=== PATIENT | female | born 1955 | race Caucasian/White ===

== ENCOUNTER 2017-09-18 11:40 | Day surgery (SDC) | payer MEDICAID ==
[2017-09-18] MEDS ORDERED: LIDOCAINE 2% MDV (20MG/ML) 20ML VIAL IV ONE (11:41)
[2017-09-18] MEDS ORDERED: FENTANYL PF 100MCG/2ML VIAL IV ONE (11:41)
[2017-09-18] MEDS ORDERED: PROPOFOL 10 MG/ML VIAL IV ONE (11:41)
--- NOTE | 2017-09-21 14:00 | Operative Note ---
DATE OF SURGERY: 09/18/2017 SURGEON: Desi David MD OPERATION: ESOPHAGOGASTRODUODENOSCOPY. INDICATIONS: This is a 62-year-old female with history of persistent nausea with no vomiting who had HIDA scan that showed a gallbladder ejection fraction of 1.1% and now presented for esophagogastroduodenoscopy. POSTOPERATIVE DIAGNOSES: 1. Mild gastritis and multiple gastric polyps, status post polypectomy. 2. Otherwise normal esophagus and duodenum. ANESTHESIA: Sedation is per Anesthesia. Pulse oximetry was monitored throughout the procedure to maintain O2 saturation of 90% or greater. Supplemental oxygen was administered via nasal cannula. Cardiac and vital signs were monitored throughout the duration of the procedure, and they were stable. The procedure of esophagogastroduodenoscopy and risks and benefits of the procedure, including the risk of bleeding and perforation, among others, were explained to the patient who voiced understanding and agreed to have the procedure done. Physical examination was performed, and the patient was found stable for sedation. PROCEDURE: The patient was placed in the left lateral position. Sedation was initiated. A plastic bite block was inserted into the oral cavity. The Olympus [id number] gastroscope was then advanced into the proximal esophagus without difficulty. The esophageal mucosa was carefully examined upon introduction of the gastroscope. The proximal and mid and distal esophageal mucosa appeared normal. The gastroscope was then advanced into the stomach, and surveillance of the stomach revealed multiple gastric polyps and mild erythema along the gastric body and antrum but no ulcers were noted. The gastroscope was then advanced to the descending duodenum without difficulty. The duodenal bulb and descending duodenum appeared normal. The gastroscope was then withdrawn into the stomach and retroflexion was performed. There were no other lesions noted. Multiple gastric biopsies were obtained. Multiple duodenal biopsies were also obtained to rule out celiac disease. The polyps were removed with cold snare and subsequently removed with retrieval basket. The gastroscope was then withdrawn and the procedure was terminated. The patient tolerated the procedure well without any immediate complaints. She remained with stable vital signs and was transferred to the recovery room. RECOMMENDATIONS: 1. The patient is to continue on his proton pump inhibitors. 2. I will suggest that she have a cholecystectomy. 3. I would be happy to see her back in the office as needed. Thank you for allowing me to participate in the care of your patient. CC: Dr. Tamika GARCIA
== END 2017-09-18 15:09 | disposition home or self-care (01) ==
LOC: HOP 11:40
PROVIDERS: ATTEND Internal Medicine Gastroenterology
DX: K31.89 Other diseases of stomach and duodenum (principal); K29.70 Gastritis, unspecified, without bleeding; I10 Essential (primary) hypertension; E11.9 Type 2 diabetes mellitus without complications; Z79.84 Long term (current) use of oral hypoglycemic drugs; G62.9 Polyneuropathy, unspecified
CPT/HCPCS: 36416; 82948

== ENCOUNTER 2017-10-05 08:51 | Day surgery (SDC) | payer MEDICAID ==
[~2017-10-05 08:51] MED LIST: ACETAMINOPHEN 1,000 MG/100 ML BTL IV ONE; FAMOTIDINE 20MG TABLET PO ONE; MECLIZINE 25 MG TABLET PO ONE; METOCLOPRAMIDE 10 MG TABLET PO ONE
[2017-10-05] MEDS ORDERED: ONDANSETRON HCL IV 4 MG/2 ML VIAL IVP ONE (08:52)
[2017-10-05] MEDS ORDERED: ROCURONIUM BROMIDE 50MG/5ML VIAL IV ONE (08:52)
[2017-10-05] MEDS ORDERED: MIDAZOLAM HCL 2MG/2ML VIAL IV ONE (08:52)
[2017-10-05] MEDS ORDERED: PROPOFOL 10 MG/ML VIAL IV ONE (08:52)
[2017-10-05] MEDS ORDERED: KETOROLAC 30 MG/ML VIAL IVP ONE (08:52)
[2017-10-05] MEDS ORDERED: BUPIVACAINE 0.25% W/EPI MPF 30ML VIAL IVP ONE (08:52)
[2017-10-05] MEDS ORDERED: SUCCINYLCHOLINE 20 MG/ML 10ML IVP ONE (08:52)
[2017-10-05] MEDS ORDERED: NEOSTIGMINE 1 MG/1 ML,10ML VIAL IV ONE (08:52)
[2017-10-05] MEDS ORDERED: LIDOCAINE 1% MDV (10MG/ML) 20ML VIAL SQ ONE (08:52)
[2017-10-05] MEDS ORDERED: GLYCOPYRROLATE 0.2 MG/ML ML IV ONE (08:52)
[2017-10-05] MEDS ORDERED: SEVOFLURANE 250 ML INH ONE (08:52)
[2017-10-05] MEDS ORDERED: FENTANYL PF 100MCG/2ML VIAL IV ONE (08:52)
[2017-10-05 09:05] LABS: BASO % 0.6 % (0-6); EOS % 3.7 % (0-6); GRAN % 54.6 % (47-80); HEMATOCRIT 38.1 % (35.0-47.0); LYMPH % 32.6 % (16-45); MEAN CELL VOLUME 92.3 fl (81-97); MEAN CORPUSCULAR HEMOGLOBIN 29.1 pg (27-33); MEAN CORPUSCULAR HGB CONC 31.5 g/dl (32-36); MEAN PLATELET VOLUME 9.9 fl (7.4-10.4); MONO % 8.5 % (0-9); PLATELET COUNT 362 K/uL (130-400); RED BLOOD COUNT 4.13 M/uL (3.80-5.40); RED CELL DISTRIBUTION WIDTH 14.4 % (11.5-14.5); WHITE BLOOD COUNT W/O DIFF 7.2 K/uL (4.2-12.2)
[2017-10-05 09:26] LABS: BLOOD UREA NITROGEN 23 mg/dL (8-23); CREATININE 0.7 mg/dL (0.5-0.9); EST GLOMERULAR FILTRATION RATE > 60 mL/min; GLUCOSE,RANDOM 190 mg/dL (74-109)
--- NOTE | 2017-10-06 08:11 | Operative Note ---
DATE OF SURGERY: 10/05/2017 Surgeon: Hank Lora DO PREOPERATIVE DIAGNOSIS: Symptomatic biliary dyskinesia. POSTOPERATIVE DIAGNOSIS: Symptomatic biliary dyskinesia. OPERATION: Laparoscopic cholecystectomy. Indication: The patient is a 62-year-old female who is having ongoing right subcostal postprandial pain. She also has extreme postprandial nausea. She has had a workup including ultrasound, HIDA scan, gastric emptying study, upper endoscopy. We did discuss cholecystectomy versus medical management. She desired surgical intervention. Risks include bleeding, infection, ductal injury, possible conversion to open, postoperative bile leak, nonresolution of her symptoms. I let her know I could not guarantee she would gain any improvement from this. Nonetheless, she desired surgical intervention. PROCEDURE: Thereafter, consent was signed and questions answered. She was taken to the operating room and placed in a supine position. General anesthesia was administered per the department of anesthesia. The patient's abdomen was prepped and draped in the usual sterile fashion. Adequate timeout was performed. She did receive preoperative DVT prophylaxis. At this time, due to her body habitus, the supraumbilical region was anesthetized with a total of 2 mL of 0.25% Sensorcaine with epinephrine. A 2 cm supraumbilical incision was made. This was carried down to the anterior rectus fascia. This was incised. Alpa clamps were placed on the fascial edges and brought up into the wound. Stay sutures of 0 Vicryl were placed. Posterior rectus sheath was identified and incised. The peritoneal cavity was entered bluntly. At this time, a 10 mm blunt Emmie port was placed. Adequate pneumoperitoneum was established. Under direct visualization, additional 5 mm epigastric and two 5 mm right subcostal ports were placed. The patient was then rotated into reverse Trendelenburg with rotation to left. The gallbladder was identified in the subhepatic space. It was retracted cephalad and laterally opening up the angle of Calot. The hepatocystic triangle was thoroughly dissected out. There was no aberrant anatomy, no posterior ductal structures. The distal half of the gallbladder was released from the cystic plate elongating our retroductal window. The cystic duct and cystic artery were clearly identified. There were no other anatomic structures noted. Each one was doubly clipped and cut in a standard fashion. Gallbladder was then taken off the liver bed with the Randall harmonic. This was brought out through the supraumbilical port. Right upper quadrant was rechecked and found to be hemostatic. No bleeding. No bile leak. No bowel injury noted. The patient was leveled out. The pneumoperitoneum was released. All ports were removed. The fascia was closed with 0 Vicryl in a [id number] fashion. The skin at all ports was closed with 4-0 Vicryl. The patient was taken to the recovery room in satisfactory condition. FINDINGS AT THE TIME OF SURGERY: Chronic cholecystitis. CC: Delmer GARCIA
== END 2017-10-05 12:10 | disposition home or self-care (01) ==
LOC: SUR 08:51
PROVIDERS: ATTEND Surgery
DX: K81.1 Chronic cholecystitis (principal); E78.00 Pure hypercholesterolemia, unspecified; R56.9 Unspecified convulsions; I10 Essential (primary) hypertension; E11.9 Type 2 diabetes mellitus without complications; Z79.4 Long term (current) use of insulin; G47.30 Sleep apnea, unspecified
CPT/HCPCS: 47562; 00790; 85025; 80048; J1885; J2405; J3010; C1776; J0330; J2710